=== PATIENT | male | born 1955 | race African-American/Black ===

== ENCOUNTER 2020-05-27 06:32 | Emergency (ER) | payer BC, MEDICAID ==
[~2020-05-27] VITALS: Ht 180.3 cm; Wt 86.4 kg
[2020-05-27] MEDS ORDERED: SODIUM CHLORIDE 0.9% 500 ML IV ONE ×2 (07:15→09:15)
[2020-05-27] MEDS ORDERED: HYDROCODONE/ACETAMINOPHEN 5-325 MG TABLET PO ONE (07:15)
[2020-05-27] MEDS ORDERED: INSULIN REGULAR, HUMAN 100 UNITS/ML IVP ONE ×2 (07:15→08:15)
[2020-05-27 08:14] LABS: GLUCOSE,POINT OF CARE 543 MG/DL (70-110)
[2020-05-27 08:24] LABS: EOSINOPHILS % (AUTO) 3.3 % (1.0-6.0); HEMATOCRIT 40.2 % (41-53); HEMOGLOBIN 13.3 g/dL (13.5-17.5); LYMPHOCYTES # (AUTO) 1.9 K/uL (1.0-4.8); LYMPHOCYTES % (AUTO) 39.7 % (22.0-44.0); MEAN CORPUSCULAR VOLUME 91 fL (80-100); MONOCYTES # (AUTO) 0.5 K/uL (0.1-1.0); MONOCYTES % (AUTO) 9.7 % (2.0-9.0); NEUTROPHILS # (AUTO) 2.2 K/uL (1.8-7.7); NEUTROPHILS % (AUTO) 46.3 % (40.0-70.0); PLATELET COUNT (AUTO) 161 K/uL (150-450); RED BLOOD CELL COUNT(AUTO) 4.42 MIL/uL (4.50-5.90); RED CELL DISTRIBUTION WIDTH 13.9 % (11.5-14.5)
[2020-05-27 08:50] LABS: ALBUMIN 3.4 g/dL (3.4-5.0); BILIRUBIN,TOTAL 0.3 mg/dL (0.1-1.0); CALCIUM, TOTAL 8.4 mg/dL (8.8-10.5); CREATININE 1.59 mg/dL (0.60-1.30); POTASSIUM 4.5 mmol/L (3.5-5.1); TOTAL PROTEIN, SERUM 7.7 g/dL (6.4-8.2)
[2020-05-27 11:15] VITALS: BP 138/83
[2020-05-27 11:20] LABS: GLUCOSE,POINT OF CARE 268 MG/DL (70-110)
== END 2020-05-27 11:36 | disposition home or self-care (01) ==
LOC: EMS 06:34
DX: E11.40 Type 2 diabetes mellitus with diabetic neuropathy, unspecified (principal); F17.210 Nicotine dependence, cigarettes, uncomplicated
CPT/HCPCS: 36415; 71045; 80053; 82962; 84484; 85025; 93005; 96361; 96374; 99285; J1815; J7040

== ENCOUNTER 2020-12-10 05:48 | Emergency (ER) | payer MEDICARE, MEDICAID ==
[~2020-12-10] VITALS: Ht 180.3 cm; Wt 88.2 kg
[2020-12-10 08:05] LABS: BASOPHILS % (AUTO) 1.1 % (0.0-2.0); EOSINOPHILS % (AUTO) 5.1 % (1.0-6.0); HEMATOCRIT 36.4 % (41-53); HEMOGLOBIN 12.3 g/dL (13.5-17.5); LYMPHOCYTES # (AUTO) 1.8 K/uL (1.0-4.8); LYMPHOCYTES % (AUTO) 39.4 % (22.0-44.0); MEAN CORPUSCULAR HEMOGLOBIN 30.2 pg (26.0-34.0); MEAN CORPUSCULAR HGB CONC 33.7 G/dL (31.0-37.0); MEAN CORPUSCULAR VOLUME 90 fL (80-100); MONOCYTES # (AUTO) 0.4 K/uL (0.1-1.0); MONOCYTES % (AUTO) 8.7 % (2.0-9.0); NEUTROPHILS # (AUTO) 2.1 K/uL (1.8-7.7); NEUTROPHILS % (AUTO) 45.7 % (40.0-70.0); PLATELET COUNT (AUTO) 191 K/uL (150-450); RED BLOOD CELL COUNT(AUTO) 4.06 MIL/uL (4.50-5.90); RED CELL DISTRIBUTION WIDTH 13.8 % (11.5-14.5)
[2020-12-10 08:14] LABS: ANION GAP 6 mmol/L (8-16); CALCIUM, TOTAL 8.9 mg/dL (8.8-10.5); CARBON DIOXIDE 29 mmol/L (22-29); CHLORIDE 105 mmol/L (98-107); CREATININE 1.28 mg/dL (0.60-1.30); GLOMERULAR FILTR. RATE CALC > 60 mL/min (>60); GLUCOSE,RANDOM 171 mg/dL (70-110); POTASSIUM 4.1 mmol/L (3.5-5.1); SODIUM SERUM 140 mmol/L (136-145); UREA NITROGEN, BLOOD 19 mg/dL (7-18)
[2020-12-10 08:21] LABS: ALANINE AMINOTRANSFERASE 25 U/L (12-78); ALBUMIN 3.5 g/dL (3.4-5.0); ALKALINE PHOSPHATASE 88 U/L (46-116); ASPARTATE AMINOTRANSFERASE 18 U/L (15-37); BILIRUBIN,TOTAL 0.2 mg/dL (0.1-1.0); LIPASE 134 U/L (73-393); TOTAL PROTEIN, SERUM 7.7 g/dL (6.4-8.2)
[2020-12-10] MEDS ORDERED: SODIUM CHLORIDE 0.9% 100 ML ONE (09:55)
[2020-12-10] MEDS ORDERED: IOHEXOL 350 MG/ML 150 ML VIAL ONE (09:55)
[2020-12-10 11:09] VITALS: BP 164/96
[2020-12-12 16:35] LABS: GLUCOSE,POINT OF CARE 156 MG/DL (70-110)
[2020-12-12 16:35] LABS: GLUCOMETER DEV NAME(LOC) ERT.5; GLUCOSE,POINT OF CARE 162 MG/DL (70-110)
== END 2020-12-10 12:05 | disposition home or self-care (01) ==
LOC: EDUNIT# 05:48 → EMS 05:49
DX: R07.89 Other chest pain (principal); K29.70 Gastritis, unspecified, without bleeding; R59.0 Localized enlarged lymph nodes; M54.5 Low back pain; K59.00 Constipation, unspecified; F17.200 Nicotine dependence, unspecified, uncomplicated; E11.9 Type 2 diabetes mellitus without complications; I10 Essential (primary) hypertension; I25.2 Old myocardial infarction; Z90.5 Acquired absence of kidney
CPT/HCPCS: 36415; 71045; 71260; 74177; 80053; 82962; 83690; 84484; 85025; 93005; 99285; A9575; J7050; 72193; 74160

== ENCOUNTER 2022-08-03 06:18 | Emergency (ER) | payer MEDICARE, MEDICAID ==
[~2022-08-03] VITALS: Ht 180.3 cm; Wt 85.9 kg
[2022-08-03 07:38] LABS: COVID AG,FIA SOURCE NASOPHARYNGEAL
[2022-08-03 08:04] LABS: INFLUENZA TYPE A NEGATIVE FOR TYPE A (NEGATIVE); INFLUENZA TYPE B NEGATIVE FOR TYPE B (NEGATIVE)
[2022-08-03] MEDS ORDERED: BENZONATATE 100 MG CAPSULE PO ONE (08:30)
[2022-08-03] MEDS ORDERED: GuaiFENesin/D-METHORPHAN [SUGAR-FREE] 200-20MG/10 ML SYRUP UDCUP PO ONE (08:30)
[2022-08-03] MEDS ORDERED: BENZ-227 PO (08:38)
[2022-08-03] MEDS ORDERED: GUAI1TBM19 PO (08:38)
[2022-08-03 08:49] VITALS: BP 145/87
== END 2022-08-03 08:53 | disposition home or self-care (01) ==
LOC: EMS 06:18
DX: J40 Bronchitis, not specified as acute or chronic (principal); E11.9 Type 2 diabetes mellitus without complications; I10 Essential (primary) hypertension; F17.210 Nicotine dependence, cigarettes, uncomplicated; Z20.822 Contact with and (suspected) exposure to COVID-19
CPT/HCPCS: 82962; 87804; 99283

== ENCOUNTER 2023-03-05 09:19 | Emergency (ER) | payer MEDICARE, MEDICAID ==
[~2023-03-05] VITALS: Ht 185.4 cm; Wt 72.7 kg
[~2023-03-05 09:19] MED LIST: ACET-2247 PO; ASPI-1450 PO; ATOR40TA71 PO; BISA10SU11 PR; DOCU-385 PO; HEPA500018 SQ; HYDR-4723 PO; HYDR20I IVP; INSLAN SQ; LOSA-382 PO; MAGN-169 PO; METO25 PO; MORP2CAR IVP; NITR0.4T52 SL; ONDA2VIA4 IVP; PANT20TA PO; TAMS0.4C34 PO; ZOLP-280 PO
[2023-03-05 09:25] VITALS: BP 155/99; PULSE 80; RESP 18; TEMP 98.2
== END 2023-03-05 09:46 | disposition left against medical advice (07) ==
LOC: EMS 09:20
DX: R06.02 Shortness of breath (principal); Z53.21 Procedure and treatment not carried out due to patient leaving prior to being seen by health care provider
CPT/HCPCS: 99281; Z7502